=== PATIENT | male | born 1995 | race Caucasian/White ===

== ENCOUNTER 2018-11-15 17:53 | Emergency (ER) | payer MEDICAID ==
[~2018-11-15] VITALS: Ht 188 cm; Wt 125.2 kg
[2018-11-15 18:54] VITALS: BP 152/96
--- NOTE | 2018-11-15 20:35 | NUR ---
PT ARRIVED TO ROOM WITH MANAGER OF FINANCIAL REPORTING.
[2018-11-15] MEDS ORDERED: OFLO5DRO7 LEFT EAR (20:55)
[2018-11-15] MEDS ORDERED: CIPR750T PO (20:55)
--- NOTE | 2018-11-15 21:00 | NUR ---
ALL RESULTS BACK, PT UP FOR RE-EVAL.
--- NOTE | 2018-11-15 23:09 | NUR ---
PT GIVEN D/C INSTRUCTIONS WITH REFERRAL AND WORK NOTE. ADDRESSED ALL QUESTIONS/CONCERNS, VERBALIZED UNDERSTANDING. PT AMBULATED OUT OF ED IN STABLE CONDITION WITH ALL BELONGINGS.
== END 2018-11-15 23:29 | disposition home or self-care (01) ==
LOC: ED 22:55
DX: H65.02 Acute serous otitis media, left ear (principal); H60.92 Unspecified otitis externa, left ear; F17.200 Nicotine dependence, unspecified, uncomplicated
CPT/HCPCS: 70450; 99284

== ENCOUNTER 2018-12-13 20:17 | Emergency (ER) | payer MEDICAID ==
[~2018-12-13] VITALS: Ht 188 cm; Wt 121.0 kg
[~2018-12-13 20:17] MED LIST: CIPR750T PO; OFLO5DRO7 LEFT EAR
[2018-12-13 20:18] VITALS: BP 154/81
--- NOTE | 2018-12-13 20:44 | NUR ---
PT GIVEN ICE FOR HAND PER PA ORDER.
== END 2018-12-13 21:29 | disposition home or self-care (01) ==
LOC: ED 21:18
DX: S63.630A Sprain of interphalangeal joint of right index finger, initial encounter (principal); W22.01XA Walked into wall, initial encounter; Y93.89 Activity, other specified; Y92.099 Unspecified place in other non-institutional residence as the place of occurrence of the external cause; Y99.8 Other external cause status
CPT/HCPCS: 29125; 99283

== ENCOUNTER 2018-12-30 20:48 | Emergency (ER) | payer MEDICAID ==
[~2018-12-30] VITALS: Ht 182.9 cm; Wt 100.0 kg
--- NOTE | 2018-12-30 21:09 | NUR ---
PT IN BED IN GOWN. PT ON O2 AND NIBP MONITORING. GIRLFRIEND AT BEDSIDE. ACCORDING TO GIRLFRIEND PT IS ON DAY 5 OF QUITING [facility]. PT HAS BEEN WORKING A LOT AND UNDER A LOT OF STRESS. ACCORDING TO GIRLFRIEND PT MEDICATES WITH [facility] TO HELP HIS PTSD. "HIS PTSD LEADS TO PARANOIA." PT BEGAN VOMITING TONIGHT AND WAS FOLLOWED BY WHAT GIRLFRIEND DECSRIBED A SEIZURE. EMS ON SCENE FOUND [id number] WITH NO INCONTINIENCE, NO ORAL TRAUMA AND MOVING ALL EXTREMITIES WITH EQUAL AND APPROPRIATE STRENGTH.
[2018-12-30] MEDS ORDERED: ONDANSETRON ODT 4 MG ONE (21:44)
[2018-12-30 22:00] LABS: BASOPHILS # (AUTO) 0.05 x10^3/uL (0-0.1); BASOPHILS % (AUTO) 1 % (0-1); EOSINOPHILS % (AUTO) 0 % (1-7); LYMPHOCYTES % (AUTO) 14 % (22-44); MD NO; MEAN CORPUSCULAR HEMOGLOBIN 30.1 pg (27.5-34.5); MEAN CORPUSCULAR HGB CONC 34.2 g/dL (33.2-36.2); MEAN CORPUSCULAR VOLUME 88.1 fL (81-97); MEAN PLATELET VOLUME 7.5 fL (7.4-10.4); MONOCYTES % (AUTO) 7 % (2-9); NEUTROPHILS % (AUTO) 79 % (42-75); PLATELET COUNT 310 x10^3/uL (130-400); RED BLOOD COUNT 5.03 x10^6/uL (4.38-5.82); RED CELL DISTRIBUTION WIDTH 12.9 % (9.4-14.8)
[2018-12-30] MEDS ORDERED: ONDANSETRON ODT 4 MG PO ONE (22:00)
[2018-12-30 22:12] LABS: ALANINE AMINOTRANSFERASE 36 U/L (12-78); ALBUMIN 4.6 g/dL (3.4-5.0); ANION GAP 7 mmol/L (5-15); CALCIUM 9.4 mg/dL (8.5-10.1); CHLORIDE 107 mmol/L (98-107); CREATININE 1.09 mg/dL (0.7-1.3)
[2018-12-30 22:14] LABS: ALKALINE PHOSPHATASE 82 U/L (45-117); BILIRUBIN,TOTAL 0.7 mg/dL (0.2-1.0); TOTAL PROTEIN 7.9 g/dL (6.4-8.2)
[2018-12-30] MEDS ORDERED: ZIPRASIDONE 20 MG INJ IM ONE ×2 (22:53→23:00)
--- NOTE | 2018-12-30 23:05 | NUR ---
PT MEDICATED WITH ORDERED MEDS. PT LAYING IN BED SHOUTING IN INDISTINGUISHABLE LANGUAGE. PT STOPS SHOUTING AND FOLLOWS COMMANDS WHEN TALKING TO HIM. BILAT BEDRAILS UP. WILL CONTINUE TO MONITOR.
[2018-12-31 00:42] LABS: ACETAMINOPHEN < 2 mcg/mL (10-30); SALICYLATE LEVEL < 1.7 mg/dL (2.8-20.0)
--- NOTE | 2018-12-31 01:16 | NUR ---
PT AND GIRLFRIEND RESTING CALMLY IN BED. PT ABLETO AMBULATE STEADILY TO THE BATHROOM TO PROVIDE URINE SAMPLE. URINE SENT TO LAB. CARE PARTNER&OX4 WILL CONTINUE TO MONITOR .
[2018-12-31 01:49] LABS: AMPHETAMINE SCREEN, URINE Negative (Negative); BARBITURATE SCREEN, URINE Negative (Negative); BENZODIAZEPINE SCREEN, URINE Negative (Negative); CANNABINOID SCREEN, URINE Positive (Negative); COCAINE SCREEN, URINE Negative (Negative); METHADONE SCREEN, URINE Negative (Negative); OPIATE SCREEN, URINE Negative (Negative)
--- NOTE | 2018-12-31 03:00 | NUR ---
REPORT GIVEN SOC
[2018-12-31 03:23] VITALS: BP 100/66
== END 2018-12-31 03:25 | disposition home or self-care (01) ==
LOC: ED 21:33
DX: F32.1 Major depressive disorder, single episode, moderate (principal); F12.129 Cannabis abuse with intoxication, unspecified; F15.129 Other stimulant abuse with intoxication, unspecified
CPT/HCPCS: 36415; 80053; 80307; 80329; 83690; 85025; 96372; 99284; J3486; Q0162; G0480

== ENCOUNTER 2019-04-09 10:34 | Emergency (ER) | payer MEDICAID ==
[~2019-04-09] VITALS: Ht 193 cm; Wt 104.5 kg
--- NOTE | 2019-04-09 10:40 | NUR ---
pt BIB [facility] after being found wandering in traffic by [employer] at the area of [facility] and [facility]. upon admit, pt is very altered. pt is mumbling and unable to sit still. has given several different names and is hallucinating. pt has no obvious injury. no resp. distress. pt has mulitple scabs on his hands and arms. unable to answer any questions. ambulatory. denies drug use. no family present. security at bedside for safety as pt neds to be moved to a secure room
--- NOTE | 2019-04-09 11:00 | NUR ---
security remains present as pt is still altered and not yet in a secure location. pt still mumbling and altered.
--- NOTE | 2019-04-09 11:30 | NUR ---
pt moved from TR01 to 38. room secured. pt undressed and belongings secured. no ID located. security gone and sitter at bedside.
--- NOTE | 2019-04-09 11:46 | NUR ---
SW has been to bedside, pt uncooperative
--- NOTE | 2019-04-09 11:57 | NUR ---
lab at bedside to attempt draw
[2019-04-09 12:12] LABS: MEAN CORPUSCULAR HEMOGLOBIN 30.2 pg (27.5-34.5); MEAN CORPUSCULAR HGB CONC 33.4 g/dL (33.2-36.2); MEAN CORPUSCULAR VOLUME 90.3 fL (81-97); MEAN PLATELET VOLUME 6.8 fL (7.4-10.4); PLATELET COUNT 387 x10^3/uL (130-400); RED BLOOD COUNT 5.09 x10^6/uL (4.38-5.82); RED CELL DISTRIBUTION WIDTH 12.8 % (9.4-14.8)
--- NOTE | 2019-04-09 12:17 | NUR ---
meal tray given
[2019-04-09 12:21] LABS: ALANINE AMINOTRANSFERASE 39 U/L (12-78); ALBUMIN 4.6 g/dL (3.4-5.0); ANION GAP 11 mmol/L (5-15); CALCIUM 9.4 mg/dL (8.5-10.1); CHLORIDE 108 mmol/L (98-107); CREATININE 1.36 mg/dL (0.7-1.3)
[2019-04-09 12:23] LABS: ALKALINE PHOSPHATASE 90 U/L (45-117); BILIRUBIN,TOTAL 1.1 mg/dL (0.2-1.0); TOTAL PROTEIN 8.5 g/dL (6.4-8.2)
--- NOTE | 2019-04-09 12:45 | NUR ---
pt has removed his IV. bleeding controlled. pt cleaned and room cleaned. room remains secure. cardiac monitor technician and replacement IV OK to hold at this time per MD as pt is escalating. refuses to give his name. pt is swearing. sitter present
[2019-04-09 13:03] LABS: BASOPHILS # (AUTO) 0.09 x10^3/uL (0-0.1); BASOPHILS % (AUTO) 0 % (0-1); EOSINOPHILS # (AUTO) 0.28 x10^3/uL (0-0.4); EOSINOPHILS % (AUTO) 1 % (1-7); LYMPHOCYTES # (AUTO) 2.42 x10^3/uL (1-3.4); LYMPHOCYTES % (AUTO) 12 % (22-44); MD SCAN; MONOCYTES # (AUTO) 1.59 x10^3/uL (0.2-0.8); MONOCYTES % (AUTO) 8 % (2-9); NEUTROPHILS % (AUTO) 78 % (42-75)
--- NOTE | 2019-04-09 13:04 | NUR ---
PO water given. pt threw most of his meal on the floor
--- NOTE | 2019-04-09 13:14 | NUR ---
pt continues to refuse to provide urine sample
--- NOTE | 2019-04-09 13:39 | NUR ---
attempted to have pt provide urine sample. pt pacing around room and agitated. pt states "what the fuck, you just want tp watch me piss!" pt unable to provide urine sample at this time
--- NOTE | 2019-04-09 14:21 | NUR ---
still agitated and mumbling. refuses to tell me his name, says that he is the devil. refuses to give urine sample. pt restless. sitter present
[2019-04-09] MEDS ORDERED: ZIPRASIDONE 20 MG INJ IM ONE ×2 (14:33→15:00)
--- NOTE | 2019-04-09 14:35 | NUR ---
pt has been moved to room 2. room secured. pt initially walked unassisted and was cooperative, but then left room 2 and attempted to return to room 38 stating that he had a "self-checkout". security arrived and attempted to escort pt back to room 2, pt became very agitated and comabtive. pt began screaming and swearing. pt moved to room 2 by security staff and placed in giovanni restraints. pt combative and threatening. report to Mckenzie CASTILLO
--- NOTE | 2019-04-09 14:41 | NUR ---
PT BECAME HOSTILE IN [place], ATTEMPTING TO HURT STAFF. PT CLENCHING FIST BEHAVING MANIC, UNABLE TO FOLLOW INSTRUCTIONS AND THERAPEUTIC COMMUNICATION. ARIEL MARTIN ATTEMPTED TO CALM PT, NO SUCCESS. PT ASKED ONE MORE TIME TO CALM DOWN AND PLEASE RETURN TO ROOM. PT NOT RESPONDING AND PACING [place] UP AND DOWN. PT HAD TO BE RESTRAINED FOR HIS SAFETY AND THAT OF OTHER PTS. PT WAS RESTRAINED IN 4 PTS AND VERBAL ORDER ATTAINED FROM DR. VIDAL AND ALSO 20 MG OF IM [place] TO RIGHT QUAD MUSCLE IT WAS ONLY LOCATION AVAILBLE. PT IN [facility] RESTRAINED IN 4 PTS. SECURITY ADJUSTED RESTRINTS.
--- NOTE | 2019-04-09 15:04 | NUR ---
The pt continues in 4 point restraints. He is calming, less twitching and less vocal.
--- NOTE | 2019-04-09 16:03 | NUR ---
The pt has his eyes closed, he was given an EKG without incident.
--- NOTE | 2019-04-09 17:00 | NUR ---
The pt is more awake and appears calmer, will be reassessing the need for restraints
--- NOTE | 2019-04-09 17:18 | NUR ---
Pt is calmer, security was asked to remove 2 restraints, instructed the pt on staying calm and to eat his dinner. The pt nodded yes for understanding instructions. The pt is currently eating his dinner.
--- NOTE | 2019-04-09 17:51 | NUR ---
The restrainst have been completely removed, the pt is calmer and cooperative. H at all of his dinner, he was given extra PO fluids with his dinner, he stated that he was thirsty. He was given 3 containers of milk and 2 8oz cups of water. He ate 100% of his dinner and drank all of the fluids. Will continue to monitor.
[2019-04-09 17:54] LABS: AMPHETAMINE SCREEN, URINE Positive (Negative); BARBITURATE SCREEN, URINE Negative (Negative); BENZODIAZEPINE SCREEN, URINE Negative (Negative); CANNABINOID SCREEN, URINE Positive (Negative); COCAINE SCREEN, URINE Negative (Negative); METHADONE SCREEN, URINE Negative (Negative); OPIATE SCREEN, URINE Negative (Negative)
[2019-04-09 18:18] LABS: MICROSCOPIC INDICATED
--- NOTE | 2019-04-09 18:19 | NUR ---
The pt is sitting up in his bed, he ate 100% of his dinner
[2019-04-09 18:29] LABS: CULTURE INDICATED? NO
--- NOTE | 2019-04-09 19:18 | NUR ---
Assumed care of patient. Received report from Flores CASTILLO. Pt asleep in bed, respirations even and unlabored, sitter in view, will continue to monitor patient.
--- NOTE | 2019-04-09 20:46 | NUR ---
pt now awake, vital signs within normal limits, much more cooperative at this time, gave fluidsm no other needs, will continue to monitor patient.
--- NOTE | 2019-04-09 22:37 | NUR ---
Explained discharge papers, signed and given to patient. Pt walked to the door with steady gait
== END 2019-04-09 22:46 | disposition home or self-care (01) ==
LOC: EDBD → MERGE 10:34 → ED 16:13
DX: R41.82 Altered mental status, unspecified (principal); F12.10 Cannabis abuse, uncomplicated; D72.829 Elevated white blood cell count, unspecified; F15.10 Other stimulant abuse, uncomplicated
CPT/HCPCS: 36415; 80053; 80307; 81001; 85025; 93005; 96372; 99284; J3486